=== PATIENT | male | born 1970 | race Caucasian/White ===

== ENCOUNTER 2016-08-04 23:55 | Emergency (ER) | payer SELFPAY ==
[~2016-08-04] VITALS: Ht 172.7 cm; Wt 110.0 kg
[2016-08-05 00:41] LABS: HEMOGLOBIN 14.6 g/dL (13.7-18.0)
[2016-08-05 00:53] LABS: ASPARTATE AMINO TRANSFERASE 16 U/L (15-37); BLOOD UREA NITROGEN 19 mg/dL (7-18)
[2016-08-05 02:48] VITALS: BP 137/78
== END 2016-08-05 02:50 | disposition home or self-care (01) ==
LOC: ED 23:59
DX: N20.2 Calculus of kidney with calculus of ureter (principal); R33.9 Retention of urine, unspecified; Z90.49 Acquired absence of other specified parts of digestive tract
CPT/HCPCS: 36415; 51702; 74176; 80053; 81001; 85025; 87086